=== PATIENT | male | born 1995 | race Caucasian/White ===

== ENCOUNTER 2023-05-17 14:10 | Emergency (ER) | payer OTHER ==
[2023-05-17] MEDS ORDERED: IBUPROFEN 600 MG TABLET (FP) PO ONE ×2 (14:16→14:30)
[2023-05-17 14:27] VITALS: BP 122/80; PULSE 84; RESP 20; TEMP 98.5; BMI 28.8
== END 2023-05-17 14:37 | disposition home or self-care (01) ==
LOC: FER 14:10
DX: S80.912A Unspecified superficial injury of left knee, initial encounter (principal); S60.211A Contusion of right wrist, initial encounter; X58.XXXA Exposure to other specified factors, initial encounter; Y99.0 Civilian activity done for income or pay
CPT/HCPCS: 99283-25

== ENCOUNTER 2024-05-09 03:02 | Emergency (ER) | payer OTHER ==
[2024-05-09 03:20] VITALS: BP 127/77; PULSE 80; RESP 16; TEMP 98.8; BMI 28.8
== END 2024-05-09 03:54 | disposition home or self-care (01) ==
LOC: FER 03:02
DX: S50.11XA Contusion of right forearm, initial encounter (principal); X58.XXXA Exposure to other specified factors, initial encounter
CPT/HCPCS: 99282-25

== ENCOUNTER 2024-05-14 01:56 | Emergency (ER) | payer OTHER ==
[2024-05-14 02:09] VITALS: BP 126/70; PULSE 80; RESP 18; TEMP 99; BMI 28.8
[2024-05-14] MEDS ORDERED: ACETAMINOPHEN 500 MG TABLET (FP) ONE (03:22)
[2024-05-14] MEDS: ACETAMINOPHEN 500 MG TABLET (FP) PO ONE (03:25)
== END 2024-05-14 05:17 | disposition home or self-care (01) ==
LOC: FER 01:56
DX: S60.511A Abrasion of right hand, initial encounter (principal); S09.90XA Unspecified injury of head, initial encounter; V89.2XXA Person injured in unspecified motor-vehicle accident, traffic, initial encounter; Y92.410 Unspecified street and highway as the place of occurrence of the external cause
CPT/HCPCS: 70450-TC; 99284-25